=== PATIENT | male | born 1955 | race Caucasian/White ===

== ENCOUNTER 2018-10-19 19:16 | Observation (INO) | payer MEDICARE, OTHER ==
[~2018-10-19] VITALS: Ht 182.9 cm; Wt 81.4 kg
[~2018-10-19 19:16] MED LIST: ACCOLATE20 MG PO; ADVAIR 500/501 EA INH; AMITRIPTYLINE H25 MG PO; CYMBALTA60 MG PO; DEXILANT60 MG PO; NEURONTIN100 MG PO; PROVENTIL HFA6.7 GM; TYLENOL WITH C1 EACH PO; VENTOLIN HFA18 GM; VIAGRA50 MG PO
--- OUTSIDE RECORDS SUMMARY | 2018-10-19 19:19 | XMS REPORT | Clinical Summary ---
Author Author [facility] Organization [facility] Address Unknown Phone Unavailable Care Team Providers Care Animal Care Provider Name Role Phone Bertram Richards MD PCP Allergies No Known Allergies Medications End Date Status Medication Sig Dispensed Refills Start Date Active multivitamin tablet Take 1 tablet 0 by mouth daily. Active gabapentin (NEURONTIN) Take 1 90 capsule 1 300 mg capsule by 4 capsuleIndications: Back mouth 3 times pain daily. Active Nebulizer & Compressor by 1 Device 0 For Neb DeviIndications: Misc.(Non-Steven 4 Reactive airway disease g; Combo Route) route. Active hypromellose (GONAK) 2.5 Instill 1 15 mL 3 % ophthalmic Drop in each 5 solutionIndications: Dry eye 3 times eye daily. Active traMADol (ULTRAM) 50 mg Take 1 tablet 60 tablet 1 tabletIndications: Back by mouth 5 pain every 12 hours as needed for Pain. Active Arm Brace (NEOPRENE WRIST use as 1 Each 1 SPLINT SUPPORT) directed 5 MiscIndications: Abnormal NONF MRI Active zafirlukast (ACCOLATE) 20 Take 1 tablet 180 tablet 5 mg tabletIndications: by mouth 2 5 Asthmatic bronchitis, times daily. severe persistent, uncomplicated, Uncomplicated severe persistent asthma Active celecoxib (CELEBREX) 200 Take 1 60 capsule 4 mg capsuleIndications: capsule by 6 Arthralgia, unspecified mouth 2 times joint daily. Active Nebulizer & Compressor 1 Device by 1 Device 0 For Neb DeviIndications: Misc.(Non-Steven 6 Asthmatic bronchitis, g; Combo severe persistent, with Route) route acute exacerbation 4 times daily. Active blood pressure monitor 1 Device by 1 Kit 0 (BLOOD PRESSURE KIT) [facility]Non-Steven 6 KitIndications: Essential g; Combo hypertension Route) route daily. Active acetaminophen-codeine Take 2 60 tablet 1 (TYLENOL/CODEINE #3) tablets by 6 300-30 mg per mouth every 4 tabletIndications: hours as Chronic left-sided low needed for back pain with sciatica, Pain. sciatica laterality unspecified Active ipratropium (ATROVENT) Inhale 2.5 mL 250 mL 3 0.02 % nebulizer by mouth 4 7 solutionIndications: times daily. Uncomplicated severe persistent asthma, Chronic obstructive pulmonary disease with acute exacerbation Active albuterol (PROVENTIL) 2.5 Inhale 3 mL 300 mL 3 mg /3 mL (0.083 %) by mouth 7 nebulizer every 6 hours solutionIndications: as needed for Chronic obstructive Wheezing. pulmonary disease with acute exacerbation Active acetaminophen-codeine Take 1 tablet 90 tablet 2 (TYLENOL/CODEINE #3) by mouth 2 7 300-30 mg per times daily. tabletIndications: Acute bilateral low back pain with right-sided sciatica Active azelastine (OPTIVAR) 0.05 Instill 1 6 mL 3 % ophthalmic Drop in each 7 solutionIndications: Dry eye 2 times eye daily. Active albuterol (PROVENTIL) 2.5 Inhale 3 mL 300 mL 3 mg /3 mL (0.083 %) by mouth 7 nebulizer every 4 hours solutionIndications: as needed for Chronic obstructive Wheezing or pulmonary disease with Shortness of acute exacerbation Breath. Active albuterol (PROVENTIL) 2.5 USE ONE VIAL 300 mL 3 mg /3 mL (0.083 %) VIA 8 nebulizer NEBULIZATION solutionIndications: BY MOUTH Chronic obstructive EVERY 6 HOURS pulmonary disease with NEEDED FOR acute exacerbation WHEEZING. Active albuterol (PROVENTIL) 2.5 USE ONE VIAL 300 mL 3 02/21/201 mg /3 mL (0.083 %) (3ML) VIA 8 nebulizer NEBULIZATION solutionIndications: BY MOUTH Chronic obstructive EVERY 6 HOURS pulmonary disease with NEEDED FOR acute exacerbation WHEEZING Active ipratropium (ATROVENT) INHALE ONE 250 mL 3 0.02 % nebulizer VIAL VIA 8 solutionIndications: NEBULIZER BY Chronic obstructive MOUTH FOUR pulmonary disease with TIMES A DAY acute exacerbation Active nystatin (MYCOSTATIN) APPLY TO 60 g 2 topical creamIndications: AFFECTED 8 Tinea AREA(S) THREE TIMES A DAY Active hydrOXYzine (ATARAX) 25 TAKE ONE 180 tablet 2 mg tabletIndications: TABLET BY 8 Rash MOUTH TWICE A DAY OR THREE TIMES A DAY. Active tiZANidine (ZANAFLEX) 4 TAKE ONE 180 tablet 2 mg tabletIndications: TABLET BY 8 Spasm of muscle MOUTH TWICE A DAY NEEDED FOR MUSCLE SPASMS. Active budesonide-formoterol Inhale 2 10.2 g 3 (SYMBICORT HFA) 160-4.5 Puffs by 8 mcg/actuation mouth 2 times inhalerIndications: daily. Chronic obstructive pulmonary disease with acute exacerbation Active fluticasone-vilanterol 60 Each 1 (BREO ELLIPTA) 200-25 8 mcg/dose DsDvIndications: Chronic obstructive pulmonary disease with acute exacerbation Active mometasone (NASONEX) 50 SPRAY TWO 17 g 3 mcg/actuation nasal SPRAYS IN 8 sprayIndications: Chronic EACH NOSTRIL rhinitis ONCE DAILY. Active Omeprazole 40 mg Take 1 90 capsule 2 capsuleIndications: capsule by 8 Gastroesophageal reflux mouth daily. disease with esophagitis Active tamsulosin (FLOMAX) 0.4 Take 1 30 capsule 2 mg extended release capsule by 8 capsuleIndications: mouth daily. Benign nodular prostatic hyperplasia without lower urinary tract symptoms Active calcipotriene (DOVONEX) APPLY TO 60 g 2 0.005 % topical AFFECTED 8 creamIndications: Rash AREA(S) TWO TIMES A DAY. Active hydroCHLOROthiazide 12.5 TAKE ONE 90 capsule 1 mg capsuleIndications: CAPSULE BY 8 Essential hypertension MOUTH EVERY MORNING. Active alendronate (FOSAMAX) 70 TAKE ONE 12 tablet 1 mg tabletIndications: TABLET BY 8 Senile osteoporosis MOUTH ONCE WEEKLY ON AN EMPTY STOMACH WITH 8 OUNCES OF WATER AND REMAIN UPRIGHT FOR 30 MINUTES.. Active sildenafil citrate Take 1 tablet 30 tablet 1 (VIAGRA) 25 mg by mouth as 8 tabletIndications: Other needed for male erectile dysfunction Erectile Dysfunction. 04/03/2019 Active albuterol 90 INHALE TWO 3 Month 3 mcg/actuation PUFFS BY Supply 8 inhalerIndications: MOUTH EVERY 4 Chronic obstructive HOURS pulmonary disease with NEEDED FOR acute exacerbation WHEEZING OR FOR SHORTNESS OF BREATH. Active amLODIPine (NORVASC) 5 mg Take 1 tablet 90 tablet 2 tabletIndications: by mouth 9 Essential hypertension daily. Active eselharmpmn-wojtcbott-wpp Inhale 1 Puff 1 Inhaler 5 anter (TRELEGY ELLIPTA) by mouth 9 100-62.5-25 mcg daily. DsDvIndications: Chronic obstructive pulmonary disease with acute exacerbation Active hydroCHLOROthiazide 12.5 TAKE ONE 30 capsule 4 mg capsuleIndications: CAPSULE BY 9 Essential hypertension MOUTH EVERY MORNING Active tamsulosin (FLOMAX) 0.4 TAKE ONE 30 capsule 0 mg extended release CAPSULE BY 9 capsuleIndications: MOUTH DAILY Benign nodular prostatic hyperplasia without lower urinary tract symptoms Active NASONEX 50 mcg/actuation SPRAY TWO 16 g 2 nasal sprayIndications: SPRAYS IN 9 Chronic rhinitis EACH NOSTRIL ONCE DAILY 11/23/2017 Discontinued ketoconazole (NIZORAL) 2 Apply to 30 g 1 % topical affected area 5 creamIndications: Tinea 2 times pedis daily. 11/23/2017 Discontinued dexlansoprazole Take 1 90 capsule 0 (DEXILANT) 60 mg delayed capsule by 6 release mouth daily. capsuleIndications: Auto sub for Gastroesophageal reflux omeprazole disease without esophagitis 11/23/2017 Discontinued fluticasone-salmeterol Inhale 1 Puff 3 Month 3 (ADVAIR DISKUS) 500-50 by mouth 2 Supply 6 mcg/dose diskus times daily. inhalerIndications: Chronic obstructive pulmonary disease with acute exacerbation 11/23/2017 Discontinued hydrOXYzine (ATARAX) 25 Take 1 tablet 90 tablet 2 mg tabletIndications: po bid or 6 Major depressive tid. disorder, single episode, unspecified 11/23/2017 Discontinued nystatin (MYCOSTATIN) Apply to 60 g 3 topical creamIndications: affected area 7 Tinea 3 times daily. 11/23/2017 Discontinued hydrOXYzine (ATARAX) 25 TAKE ONE 270 tablet 1 mg tabletIndications: TABLET BY 7 Chronic obstructive MOUTH TWICE A pulmonary disease with DAY TO THREE acute exacerbation TIMES A DAY. 04/08/2018 Discontinued sildenafil citrate Take 1 tablet 10 tablet 3 (VIAGRA) 100 mg by mouth as 7 tabletIndications: needed for Erectile dysfunction due Erectile to arterial insufficiency Dysfunction. 11/23/2017 Discontinued amLODIPine (NORVASC) 10 Take 1 tablet 90 tablet 3 mg tabletIndications: by mouth 7 Essential hypertension daily. 11/23/2017 Discontinued amLODIPine (NORVASC) 10 Take 1 tablet 90 tablet 0 mg tabletIndications: by mouth 7 Essential hypertension daily. 11/23/2017 Discontinued tiZANidine (ZANAFLEX) 4 TAKE ONE 180 tablet 0 mg tabletIndications: TABLET BY 7 Spasm of muscle MOUTH TWICE A DAY NEEDED FOR MUSCLE SPASMS. 11/23/2017 Discontinued Omeprazole 40 mg Take 1 90 capsule 3 capsuleIndications: capsule by 7 Gastroesophageal reflux mouth daily. disease with esophagitis 04/08/2018 Discontinued sildenafil citrate Take 1 tablet 20 tablet 5 (VIAGRA) 100 mg by mouth as 7 tabletIndications: needed for Erectile dysfunction due Erectile to arterial insufficiency Dysfunction. 04/08/2018 Discontinued mometasone (NASONEX) 50 2 Sprays by 51 g 4 mcg/actuation nasal each nostril 7 sprayIndications: Chronic route daily. seasonal allergic rhinitis due to pollen 11/23/2017 Discontinued fluticasone-vilanterol Take 1 Puff 180 Each 2 (BREO ELLIPTA) 200-25 by mouth 7 mcg/dose DsDvIndications: daily. Chronic obstructive pulmonary disease with acute exacerbation 04/08/2018 Discontinued albuterol (PROAIR HFA) 90 INHALE TWO 3 Month 3 mcg/actuation PUFFS BY Supply 7 inhalerIndications: MOUTH EVERY 4 Chronic obstructive HOURS pulmonary disease with NEEDED FOR acute exacerbation WHEEZING OR FOR SHORTNESS OF BREATH. 11/23/2017 Discontinued budesonide-formoterol Inhale 2 10.2 g 3 (SYMBICORT HFA) 160-4.5 Puffs by 7 mcg/actuation mouth 2 times inhalerIndications: daily. Moderate persistent asthma with status asthmaticus 11/23/2017 Discontinued alendronate (FOSAMAX) 70 TAKE ONE 4 tablet 2 mg tabletIndications: TABLET BY 7 Senile osteoporosis MOUTH ONCE WEEKLY ON AN EMPTY STOMACH WITH 8 OUNCES OF WATER AND REMAIN UPRIGHT FOR 30 MINUTES. 04/08/2018 Discontinued promethazine (PHENERGAN) Take 1 tablet 60 tablet 3 25 mg tabletIndications: by mouth 7 Nausea every 8 hours as needed for Nausea or Vomiting. 11/23/2017 Discontinued BREO ELLIPTA 200-25 INHALE ONE 60 Each 1 mcg/dose DsDvIndications: DOSE BY MOUTH 8 Chronic obstructive DAILY pulmonary disease with acute exacerbation 11/23/2017 Discontinued calcipotriene (DOVONEX) Apply to 60 g 4 0.005 % topical affected area 8 creamIndications: Rash 2 times daily. 04/08/2018 Discontinued sildenafil citrate Take 1 tablet 30 tablet 4 (VIAGRA) 100 mg by mouth as 8 tabletIndications: needed for Erectile dysfunction due Erectile to arterial insufficiency Dysfunction. 11/23/2017 Discontinued omeprazole (PRILOSEC) 20 TAKE ONE 60 capsule 2 mg delayed release CAPSULE BY 8 capsuleIndications: MOUTH TWICE A Gastroesophageal reflux DAY disease with esophagitis 02/26/2018 Discontinued ipratropium (ATROVENT) Inhale 2.5 mL 300 mL 3 0.02 % nebulizer by mouth 4 8 solutionIndications: times daily. Chronic obstructive pulmonary disease with acute exacerbation 04/08/2018 Discontinued promethazine (PHENERGAN) TAKE ONE 60 tablet 0 25 mg tabletIndications: TABLET BY 8 Nausea MOUTH EVERY 8 HOURS NEEDED FOR NAUSEA AND VOMITING 11/15/2017 Discontinued tamsulosin (FLOMAX) 0.4 TAKE ONE 30 capsule 2 mg extended release CAPSULE BY 8 capsuleIndications: MOUTH DAILY Benign nodular prostatic hyperplasia without lower urinary tract symptoms 11/23/2017 Discontinued NASONEX 50 mcg/actuation SPRAY TWO 16 g 3 nasal sprayIndications: SPRAYS IN 8 Chronic rhinitis EACH NOSTRIL ONCE DAILY 11/23/2017 Discontinued albuterol (PROVENTIL) 2.5 USE ONE VIAL 300 mL 3 mg /3 mL (0.083 %) VIA 8 nebulizer NEBULIZATION solutionIndications: BY MOUTH Chronic obstructive EVERY 6 HOURS pulmonary disease with NEEDED FOR acute exacerbation WHEEZING 11/23/2017 Discontinued hydrOXYzine (ATARAX) 25 TAKE ONE 90 tablet 0 mg tabletIndications: TABLET BY 8 Itch MOUTH TWICE A DAY OR THREE TIMES A DAY 10/27/2017 Discontinued hydroCHLOROthiazide 12.5 TAKE ONE 30 capsule 0 mg capsuleIndications: CAPSULE BY 8 Essential hypertension MOUTH EVERY MORNING 11/23/2017 Discontinued tiZANidine (ZANAFLEX) 4 TAKE ONE 60 tablet 3 mg tabletIndications: TABLET BY 8 Spasm of muscle MOUTH TWICE A DAY NEEDED FOR MUSCLE SPASMS. 04/08/2018 Discontinued codeine-guaiFENesin TAKE 5ML BY 120 mL 0 (CHERATUSSIN AC) 10-100 MOUTH THREE 8 mg/5 mL syrupIndications: TIMES A DAY Cough NEEDED COUGH. 11/23/2017 Discontinued hydroCHLOROthiazide 12.5 TAKE ONE 30 capsule 0 mg capsuleIndications: CAPSULE BY 8 Essential hypertension MOUTH EVERY MORNING 11/23/2017 Discontinued hydroCHLOROthiazide 12.5 TAKE ONE 30 capsule 5 mg capsuleIndications: CAPSULE BY 8 Essential hypertension MOUTH EVERY MORNING. 11/23/2017 Discontinued tamsulosin (FLOMAX) 0.4 TAKE ONE 30 capsule 1 mg extended release CAPSULE BY 8 capsuleIndications: MOUTH DAILY Benign nodular prostatic hyperplasia without lower urinary tract symptoms 05/20/2018 Discontinued HYDROcodone-ibuprofen Take 1 tablet 0 7.5-200 mg per tablet by mouth 8 every 4 hours as needed. 04/08/2018 Discontinued tamsulosin (FLOMAX) 0.4 Take 1 90 capsule 1 mg extended release capsule by 8 capsuleIndications: mouth daily. Benign nodular prostatic hyperplasia without lower urinary tract symptoms 04/08/2018 Discontinued hydroCHLOROthiazide 12.5 TAKE ONE 90 capsule 1 mg capsuleIndications: CAPSULE BY 8 Essential hypertension MOUTH EVERY MORNING. 12/07/2017 Discontinued tiZANidine (ZANAFLEX) 4 TAKE ONE 180 tablet 1 mg tabletIndications: TABLET BY 8 Spasm of muscle MOUTH TWICE A DAY NEEDED FOR MUSCLE SPASMS. 12/07/2017 Discontinued hydrOXYzine (ATARAX) 25 TAKE ONE 180 tablet 1 mg tabletIndications: TABLET BY 8 Itch MOUTH TWICE A DAY OR THREE TIMES A DAY. 04/08/2018 Discontinued mometasone (NASONEX) 50 SPRAY TWO 16 g 3 mcg/actuation nasal SPRAYS IN 8 sprayIndications: Chronic EACH NOSTRIL rhinitis ONCE DAILY. 04/08/2018 Discontinued omeprazole (PRILOSEC) 20 Take 1 60 capsule 2 mg delayed release capsule by 8 capsuleIndications: mouth 2 times Gastroesophageal reflux daily. disease with esophagitis 03/09/2018 Discontinued calcipotriene (DOVONEX) Apply to 180 g 1 0.005 % topical affected area 8 creamIndications: Rash 2 times daily. 04/08/2018 Discontinued fluticasone-vilanterol 60 Each 1 (BREO ELLIPTA) 200-25 8 mcg/dose DsDvIndications: Chronic obstructive pulmonary disease with acute exacerbation 04/08/2018 Discontinued alendronate (FOSAMAX) 70 TAKE ONE 12 tablet 1 mg tabletIndications: TABLET BY 8 Senile osteoporosis MOUTH ONCE WEEKLY ON AN EMPTY STOMACH WITH 8 OUNCES OF WATER AND REMAIN UPRIGHT FOR 30 MINUTES.. 04/08/2018 Discontinued budesonide-formoterol Inhale 2 10.2 g 3 (SYMBICORT HFA) 160-4.5 Puffs by 8 mcg/actuation mouth 2 times inhalerIndications: daily. Moderate persistent asthma with status asthmaticus 04/08/2018 Discontinued amLODIPine (NORVASC) 10 Take 1 tablet 90 tablet 1 mg tabletIndications: by mouth 8 Essential hypertension daily. 03/09/2018 Discontinued nystatin (MYCOSTATIN) Apply to 60 g 3 topical creamIndications: affected area 8 Tinea 3 times daily. 04/08/2018 Discontinued dexlansoprazole Take 1 90 capsule 1 (DEXILANT) 60 mg delayed capsule by 8 release mouth daily. capsuleIndications: Auto sub for Gastroesophageal reflux omeprazole disease without esophagitis 03/06/2018 Discontinued Omeprazole 40 mg TAKE ONE 30 capsule 2 capsuleIndications: CAPSULE BY 8 Gastroesophageal reflux MOUTH DAILY disease with esophagitis 02/20/2018 Discontinued albuterol (PROVENTIL) 2.5 USE ONE VIAL 300 mL 2 mg /3 mL (0.083 %) VIA 8 nebulizer NEBULIZATION solutionIndications: BY MOUTH Chronic obstructive EVERY 6 HOURS pulmonary disease with NEEDED FOR acute exacerbation WHEEZING 04/08/2018 Discontinued hydrOXYzine (ATARAX) 25 TAKE ONE 180 tablet 2 mg tabletIndications: TABLET BY 8 Itch, Psychophysiological MOUTH TWICE A insomnia DAY OR THREE TIMES A DAY. 04/08/2018 Discontinued tiZANidine (ZANAFLEX) 4 TAKE ONE 180 tablet 2 mg tabletIndications: TABLET BY 8 Spasm of muscle MOUTH TWICE A DAY NEEDED FOR MUSCLE SPASMS. 03/23/2018 Discontinued NASONEX 50 mcg/actuation SPRAY TWO 16 g 2 nasal sprayIndications: SPRAYS IN 8 Chronic rhinitis EACH NOSTRIL ONCE DAILY 02/15/2018 Discontinued tamsulosin (FLOMAX) 0.4 TAKE ONE 30 capsule 0 mg extended release CAPSULE BY 8 capsuleIndications: MOUTH DAILY Benign nodular prostatic hyperplasia without lower urinary tract symptoms 03/15/2018 Discontinued tamsulosin (FLOMAX) 0.4 TAKE ONE 30 capsule 0 mg extended release CAPSULE BY 8 capsuleIndications: MOUTH DAILY Benign nodular prostatic hyperplasia without lower urinary tract symptoms 03/09/2018 Discontinued Omeprazole 40 mg TAKE ONE 30 capsule 1 capsuleIndications: CAPSULE BY 8 Gastroesophageal reflux MOUTH DAILY disease with esophagitis 03/15/2018 Discontinued Omeprazole 40 mg Take 1 90 capsule 2 capsuleIndications: capsule by 8 Gastroesophageal reflux mouth daily. disease with esophagitis 04/08/2018 Discontinued calcipotriene (DOVONEX) APPLY TO 60 g 2 0.005 % topical AFFECTED 8 creamIndications: Rash AREA(S) TWO TIMES A DAY 04/08/2018 Discontinued Omeprazole 40 mg Take 1 90 capsule 2 capsuleIndications: capsule by 8 Gastroesophageal reflux mouth daily. disease with esophagitis 04/08/2018 Discontinued tamsulosin (FLOMAX) 0.4 TAKE ONE 30 capsule 0 mg extended release CAPSULE BY 8 capsuleIndications: MOUTH DAILY Benign nodular prostatic hyperplasia without lower urinary tract symptoms 04/08/2018 Discontinued NASONEX 50 mcg/actuation SPRAY TWO 17 g 3 nasal sprayIndications: SPRAYS IN 8 Chronic rhinitis EACH NOSTRIL ONCE DAILY 05/20/2018 Discontinued amLODIPine (NORVASC) 10 Take 1 tablet 90 tablet 1 mg tabletIndications: by mouth 8 Essential hypertension daily. 05/20/2018 Discontinued tamsulosin (FLOMAX) 0.4 TAKE ONE 30 capsule 0 mg extended release CAPSULE BY 8 capsuleIndications: MOUTH DAILY Benign nodular prostatic hyperplasia without lower urinary tract symptoms 06/23/2018 Discontinued tamsulosin (FLOMAX) 0.4 TAKE ONE 30 capsule 0 05/23/201 mg extended release CAPSULE BY 9 capsuleIndications: MOUTH DAILY Benign nodular prostatic hyperplasia without lower urinary tract symptoms 07/20/2018 Discontinued tamsulosin (FLOMAX) 0.4 TAKE ONE 30 capsule 0 06/23/201 mg extended release CAPSULE BY 9 capsuleIndications: MOUTH DAILY Benign nodular prostatic hyperplasia without lower urinary tract symptoms Active Problems Problem Noted Date Varicose veins 04/24/2015 Carpal tunnel syndrome, bilateral 04/24/2015 Elevated PSA 02/08/2015 Benign prostatic hyperplasia 09/19/2014 NS (nuclear sclerosis) 09/07/2014 Hyperopia with astigmatism and presbyopia 09/07/2014 History of shingles 04/25/2014 Dry eye 04/25/2014 Low back pain 07/12/2013 Edentulous 04/25/2013 Encounters Care Team Description Date Type Specialty Bertram Richards MD Chronic rhinitis 10/07/2018 Refill Family Practice Luana Ferrara LMSW Pre-clinic Chart Review; [employer] (DME repairs) 09/30/2018 Telephone Social Work Rosario Siegel RN 09/09/2018 Nurse Triage Bertram Richards MD Benign nodular prostatic hyperplasia without lower urinary tract symptoms 07/20/2018 Refill Family Practice Bertram Richards MD Benign nodular prostatic hyperplasia without lower urinary tract symptoms 06/23/2018 Refill Family Practice Bertram Richards MD Essential hypertension 05/28/2018 Refill [facility] Bertram Richards MD Benign nodular prostatic hyperplasia without lower urinary tract symptoms 05/21/2018 Refill [facility] Bertram Richards MD Elevated liver enzymes (Primary Dx); Essential hypertension; Chronic obstructive pulmonary disease with acute exacerbation 05/20/2018 Office Visit [facility] 05/20/2018 Travel Bertram Richards MD Benign nodular prostatic hyperplasia without lower urinary tract symptoms 04/16/2018 Refill [facility] [employer] Medical Equipment (Inquire about title XIX received requesting power wheelchair repair.); Pre-clinic Chart Review 04/14/2018 Telephone Social Work Boris Diaz MD Essential hypertension (Primary Dx); Chronic obstructive pulmonary disease with acute exacerbation; Chronic rhinitis; Rash; Benign nodular prostatic hyperplasia without lower urinary tract symptoms; Gastroesophageal reflux disease with esophagitis; Spasm of muscle; Senile osteoporosis; Other male erectile dysfunction; Need for influenza vaccination; Screening for condition 04/08/2018 Office Visit [facility] 04/08/2018 Travel Bertram Richards MD Chronic rhinitis 03/23/2018 Refill [facility] Bertram Richards MD Benign nodular prostatic hyperplasia without lower urinary tract symptoms 03/15/2018 Refill [facility] Marjorie Copeland RN Gastroesophageal reflux disease with esophagitis 03/15/2018 Refill [facility] Bertram Richards MD Tinea; Rash 03/09/2018 Refill [facility] Bertram Richards MD Gastroesophageal reflux disease with esophagitis 03/09/2018 Orders Only Family Practice Bertram Richards MD Gastroesophageal reflux disease with esophagitis 03/06/2018 Refill [facility] Bertram Richards MD Chronic obstructive pulmonary disease with acute exacerbation 02/26/2018 Refill Pulmonology Bertram Richards MD Chronic obstructive pulmonary disease with acute exacerbation 02/20/2018 Refill Pulmonology Bertram Richards MD Benign nodular prostatic hyperplasia without lower urinary tract symptoms 02/15/2018 Refill [facility] Bertram Richards MD Benign nodular prostatic hyperplasia without lower urinary tract symptoms 01/13/2018 Refill [facility] Bertram Richards MD Chronic rhinitis 12/15/2017 Refill Family Practice Bertram Richards MD Hepatomegaly (Primary Dx); Splenomegaly; Itch; Spasm of muscle; Psychophysiological insomnia 12/07/2017 Office Visit Family Practice Bertram Richards MD Chronic obstructive pulmonary disease with acute exacerbation 12/03/2017 Refill Pulmonology Bertram Richards MD Gastroesophageal reflux disease with esophagitis (Primary Dx) 11/30/2017 Refill Family Practice Daya Freedman NP Need for Tdap vaccination (Primary Dx); Benign nodular prostatic hyperplasia without lower urinary tract symptoms; Essential hypertension; Spasm of muscle; Itch; Chronic obstructive pulmonary disease with acute exacerbation; Chronic rhinitis; Gastroesophageal reflux disease with esophagitis; Rash; Senile osteoporosis; Moderate persistent asthma with status asthmaticus; Tinea; Gastroesophageal reflux disease without esophagitis; Lower abdominal pain; Screen for STD (sexually transmitted disease); Colon cancer screening; Preventative health care 11/23/2017 Office Visit Family Practice Katherine Cole, [place] Information Only 11/17/2017 Telephone Psychiatry Bertram Richards MD Benign nodular prostatic hyperplasia without lower urinary tract symptoms 11/15/2017 Refill Family Practice Marjorie Copeland, [place] Essential hypertension 10/27/2017 Refill Family Practice after 10/18/2017 Immunizations Name Administration Dates Next Due GENTAMICIN 40 MG/ML 04/23/2015 INJECTION Herpes Zoster Vaccine In 04/25/2014 Clinic Influenza <Unspecified> 01/17/2017 Influenza Vaccine 01/26/2014 Influenza Vaccine, 04/27/2017 (Deferred: Patient already had this Seasonal, Injectable immunization - pt states he received influenza vaccine in 2016 at [facility]) Influenza, 04/08/2018 (Deferred: Patient Refused) Vaccine<FLUCELVAX>(Multi- Dose) KETOROLAC 60 MG/2 ML IM 07/08/2015 PPV 23 Pneumococcal 03/22/2014 Polysaccaride Triamcinolone 40mg/ml Inj 07/08/2015 Twinrix-HEP A&b 09/19/2015 Family History Medical History Relation Name Comments Stroke Father Cancer Mother Cancer Sister Relation Name Status Comments Father Mother Sister Social History Date Tobacco Use Types Packs/Day Years Used Never Smoker Smokeless Tobacco: Never Used Tobacco Cessation: Counseling Given: No Drinks/Week oz/Week Comments Alcohol Use 0 Standard drinks or equivalent 0.0 Yes Food Insecurity Answer Date Recorded Within the past 12 months, you worried that your Never true 05/20/2018 food would run out before you got money to buy more. Within the past 12 months, the food you bought Never true 05/20/2018 just didn't last and you didn't have money to get more. Sex Assigned at Date Recorded Not on file Industry Job Start Date Occupation Not on file Not on file Not on file Travel End Travel History Travel Start No recent travel history available. 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 Reduce pain Lifestyle Yes Sarah Maria Procedures Comments Procedure Name Priority Date/Time Associated Diagnosis GAMMA GLUTAMYL Routine 06/02/2018 Elevated liver enzymes TRANSFERASE (GGT) 10:24 AM JAVA MANAGER HEMOGLOBIN A1C Routine 06/02/2018 Elevated liver enzymes 10:24 AM JAVA MANAGER GLUCOSE, FASTING Routine 06/02/2018 Elevated liver enzymes 10:24 AM JAVA MANAGER ELECTROLYTES Routine 06/02/2018 Elevated liver enzymes 10:24 AM JAVA MANAGER UREA NITROGEN/CREATININE Routine 06/02/2018 Elevated liver enzymes 10:24 AM JAVA MANAGER URINALYSIS Routine 06/02/2018 Elevated liver enzymes 10:24 AM JAVA MANAGER LIVER PROFILE Routine 06/02/2018 Elevated liver enzymes 10:24 AM JAVA MANAGER LIPID PROFILE Routine 06/02/2018 Elevated liver enzymes 10:24 AM JAVA MANAGER CBC (WITHOUT Routine 06/02/2018 Elevated liver enzymes DIFFERENTIAL) 10:24 AM JAVA MANAGER HEPATITIS PANEL Routine 04/08/2018 Screening for condition 11:23 AM JAVA MANAGER HIV-1/HIV-2 ROUTINE Routine 04/08/2018 Screening for condition SCREENING 11:23 AM JAVA MANAGER VIT D, 25-HYDROXY Routine 04/08/2018 Spasm of muscle 11:23 AM JAVA MANAGER CBC (WITHOUT Routine 04/08/2018 Screening for condition DIFFERENTIAL) 11:23 AM JAVA MANAGER FREE T4 Routine 04/08/2018 Screening for condition 11:23 AM JAVA MANAGER BASIC METABOLIC PANEL Routine 04/08/2018 Essential hypertension 11:23 AM JAVA MANAGER LIVER PROFILE Routine 04/08/2018 Essential hypertension 11:23 AM JAVA MANAGER LIPID PROFILE Routine 04/08/2018 Screening for condition 11:23 AM JAVA MANAGER HEMOGLOBIN A1C Routine 04/08/2018 Screening for condition 11:23 AM JAVA MANAGER THYROID STIMULATING Routine 04/08/2018 Screening for condition HORMONE (TSH) 11:23 AM JAVA MANAGER FECAL OCCULT BLOOD Routine 12/07/2017 Colon cancer screening 3:50 PM CDT VIT D, 25-HYDROXY Routine 11/23/2017 Preventative health care 12:06 PM CDT HEMOGLOBIN A1C Routine 11/23/2017 Preventative health care 12:06 PM CDT FREE T4 Routine 11/23/2017 Preventative health care 12:06 PM CDT THYROID STIMULATING Routine 11/23/2017 Preventative health care HORMONE (TSH) 12:06 PM CDT LIPID PROFILE Routine 11/23/2017 Preventative health care 12:06 PM CDT CBC/DIFF Routine 11/23/2017 Preventative health care 12:06 PM CDT LIVER PROFILE Routine 11/23/2017 Preventative health care 12:06 PM CDT BASIC METABOLIC PANEL Routine 11/23/2017 Preventative health care 12:06 PM CDT HSV 1 AND 2-SPECIFIC AB, Routine 11/23/2017 Screen for STD (sexually IGG W/ REFLEX 11:39 AM CDT transmitted disease) CHLAM/GC DNA AMPLI Routine 11/23/2017 Screen for STD (sexually 11:39 AM CDT transmitted disease) SYPHILIS SCREEN FOR Routine 11/23/2017 Screen for STD (sexually INFECTION 11:38 AM CDT transmitted disease) HEPATITIS PANEL Routine 11/23/2017 Screen for STD (sexually 11:38 AM CDT transmitted disease) HIV-1/HIV-2 ROUTINE Routine 11/23/2017 Screen for STD (sexually SCREENING 11:38 AM CDT transmitted disease) HEMOCCULT KIT FOR Routine 11/23/2017 Colon cancer screening SPECIMEN COLLECTION AT 11:35 AM CDT HOME after 10/18/2017 Results * HEMOGLOBIN A1C (06/02/2018 10:24 AM JAVA MANAGER) Only the most recent of 3 results within the time period is included. Hemoglobin A1c 5.6 4.3 - 6.1 % BT [facility] IMMUNOLOGY Est Average 114.0 mg/dL BT [facility] Gluc IMMUNOLOGY Specimen Blood Performing Organization Address City/State/Zipcode Phone Number [facility] IMMUNOLOGY * UA CHEMISTRIES (06/02/2018 10:24 AM JAVA MANAGER) Color Straw BT MAIN-STATION 3 Clarity Clear BT [facility] 3 Specific 1.004 1.001 - 1.035 BT MA[facility]ATION [place] 3 pH 6.0 5 - 8 BT [facility] 3 Protein Negative NEG BT [facility] 3 Glucose Negative NEG BT [facility] 3 Ketones Negative NEG BT [facility] 3 Bilirubin Negative NEG BT [facility] 3 Nitrate Negative NEG BT [facility] 3 Urobilinogen,Se <1.0 0.2 - 1.0 EU/dL BT MAIN[facility]STATION mi-Qn 3 Leukocyte Negative NEG BT [facility] 3 Occult Blood Negative NEG BT [facility] 3 Specimen Urine Performing Organization Address [facility] [place] [place] Phone Number [facility] BT [facility]IN[facility] 3 * ELECTROLYTES (06/02/2018 10:24 AM JAVA MANAGER) Sodium 132 (L) 136 - 145 mmol/L BT MA[facility]ST[facility] 1 Potassium 4.1 3.5 - 5.1 mmol/L BT [facility] 1 Chloride 95 (L) 98 - 107 mmol/L BT [facility] 1 CO2 25 21 - 31 mmol/L BT [facility] 1 Anion Gap 12 BT MAIN[facility]ATION 1 Specimen Blood Performing Organization Address [facility] [place], [place] Phone Number [facility] BT [facility]IN[facility] 1 * LIVER PROFILE (06/02/2018 10:24 AM JAVA MANAGER) Only the most recent of 3 results within the time period is included. Protein, Total, 7.1 6.0 - 8.3 g/dL BT [facility] Serum 1 Albumin 4.5 4.2 - 5.5 g/dL BT [facility] 1 Bilirubin, 1.2 0.2 - 1.2 mg/dL BT [facility] Total 1 Alkaline 118 (H) 34 - 104 U/L BT [facility] Phosphatase, S 1 AST (SGOT) 78 (H) 13 - 39 U/L BT [facility] 1 ALT 67 (H) 7 - 52 U/L BT [facility] 1 D Bilirubin 0.3 (H) 0.0 - 0.2 mg/dL BT MA[facility] 1 Specimen Blood Performing Organization Address [facility] [place] [place] Phone Number [facility] BT [facility]IN[facility]ST[facility] 1 * LIPID PROFILE (06/02/2018 10:24 AM JAVA MANAGER) Only the most recent of 3 results within the time period is included. Cholesterol 162 mg/dL BT [facility] Comment: 1 REFERENCE RANGE: Desirable: <200 mg/dL Borderline: 200-240 mg/dL High Risk: >240 mg/dL Triglyceride 56 <150 mg/dL BT [facility]ATION Comment: 1 REFERENCE RANGE: Normal: <150 mg/dL Borderline High: 150-199 mg/dL High: 200-499 mg/dL Very High: >vg=811 mg/dL HDL 65 mg/dL BT [facility]ATION Comment: 1 Increased CHD risk: <40 mg/dL Decreased CHD risk: >60 mg/dL LDL 86 mg/dL BT MA[facility]STATION Comment: 1 REFERENCE RANGE: Optimal: <100 mg/dL Near Optimal: 100-129 mg/dL Borderline High: 130-159 mg/dL High: 160-189 mg/dL Very High: >mj=209 mg/dL Specimen Blood Performing Organization Address [facility] Phone Number [facility] BT [facility] 1 * GGT (06/02/2018 10:24 AM JAVA MANAGER) GGT 225 (H) 9 - 64 U/L BT MAIN[facility]STATION 1 Specimen Blood Performing Organization Address [facility] [place], [place] Phone Number [facility] BT MAIN[facility] 1 * GLUCOSE, FASTING (06/02/2018 10:24 AM JAVA MANAGER) Glucose, 95 74 - 106 mg/dL BT MAIN-STATION Fasting 1 Specimen Blood Performing Organization Address [facility] [place], [place] Phone Number [facility] BT MAIN[facility]STATION 1 * CBC (06/02/2018 10:24 AM JAVA MANAGER) Only the most recent of 2 results within the time period is included. WBC 5.8 4.5 - 12.0 K/uL BT MAIN-STATION 2 RBC 4.45 (L) 4.60 - 6.20 M/uL BT MAIN[facility]STATION 2 Hemoglobin 14.0 14.0 - 18.0 g/dL BT MAIN[facility]STATION 2 Hematocrit 41.2 40.0 - 54.0 % BT MA[facility] 2 MCV 93 (H) 82 - 92 fL BT MAIN[facility] 2 MCH 31.5 (H) 27.0 - 31.0 pg BT MAIN[facility] 2 MCHC 34.0 32.0 - 36.0 g/dL BT [facility] 2 RDW 41.3 35.1 - 43.9 fL BT MAIN[facility]ST[facility] 2 Platelets 238 150 - 400 K/uL BT MA[facility] 2 Mean Platelet 11.1 9.4 - 12.4 fL BT MAIN[facility]ATION Volume 2 Percent NRBC 0.0 BT MAIN[facility]STATION 2 Absolute NRBC 0.00 BT MAIN-STATION 2 Specimen Blood Performing Organization Address [facility] [place], [place] Phone Number [facility] BT MAIN[facility]STATION 2 * UREA NITROGEN/CREA (06/02/2018 10:24 AM JAVA MANAGER) BUN 7 7 - 25 mg/dL BT MAIN[facility] 1 Creatinine 0.70 0.7 - 1.3 mg/dL BT MAIN[facility] 1 GFR, Estimated >60 mL/min/1.73 m2 BT MAIN[facility]ST[facility] 1 eGFR If Africn >60 mL/min/1.73 m2 BT MAIN[facility]STATION Am 1 Specimen Other (Specify in Comments) Performing Organization Address City/[facility] [place], [place] Phone Number [facility] BT MAIN[facility]STATION 1 * VIT D, 25-HYDROXY (04/08/2018 11:23 AM JAVA MANAGER) Only the most recent of 2 results within the time period is included. Vit D, 42.9 30 - 100 ng/mL BT DIAG[facility]IC 25-Hydroxy Comment: IMMUNOLOGY Vitamin D deficiency has been defined by the [place] of Medicine and Endocrine Society guideline as a level of serum 25-OH Vitamin D less than 20 ng/mL. The Endocrine Society further defines Vitamin D insufficiency as a level between 21 and 29 ng/mL and sufficiency as a level between 30 and 100 ng/mL. Specimen Performing Organization Address City/[facility] [place], [place] Phone Number [facility] BT DIAGNOSTIC IMMUNOLOGY * HIV-1/HIV-2 ROUTINE SCREENING (04/08/2018 11:23 AM JAVA MANAGER) Only the most recent of 2 results within the time period is included. HIV-1/HIV-2 Negative NEG BT [facility]IN[facility] 3 Specimen Performing Organization Address [facility] [place], [place] Phone Number [facility] BT MAIN[facility] 3 * TSH (04/08/2018 11:23 AM JAVA MANAGER) Only the most recent of 2 results within the time period is included. TSH 0.57 0.57 - 3.74 uIU/mL BT MAIN[facility]STATION 1 Specimen Blood Performing Organization Address [facility] Phone Number [facility] 1 * FREE T4 (04/08/2018 11:23 AM JAVA MANAGER) Only the most recent of 2 results within the time period is included. Free T4 0.68 0.61 - 1.18 ng/dl BT MAIN[facility]STATION 1 Specimen Blood Performing Organization Address [facility] [place] [place] Phone Number [facility] BT [facility]IN[facility] 1 * HEPATITIS PANEL (04/08/2018 11:23 AM JAVA MANAGER) Only the most recent of 2 results within the time period is included. HCV IgG Negative NEG BT [facility]IN[facility] 3 HBsAg Negative NEG BT MAIN[facility] 3 HAV, IgM Negative NEG BT [facility]IN[facility] 3 HBcAb, IgM Negative NEG BT MAIN[facility] 3 Specimen Blood Performing Organization Address [facility] [place], [place] Phone Number [facility] BT MAIN-STATION 3 * BASIC METABOLIC PANEL (04/08/2018 11:23 AM JAVA MANAGER) Only the most recent of 2 results within the time period is included. CO2 24 21 - 31 mmol/L BT MAIN[facility]STATION 1 Chloride 99 98 - 107 mmol/L BT MAIN[facility] 1 Potassium 4.1 3.5 - 5.1 mmol/L BT MAIN[facility]ATION 1 Sodium 137 136 - 145 mmol/L BT [facility] 1 Glucose 85 70 - 110 mg/dL BT [facility] 1 BUN 10 7 - 25 mg/dL BT [facility] 1 Creatinine 0.90 0.7 - 1.3 mg/dL BT MAIN[facility] 1 Anion Gap 14 BT MAIN[facility]STATION 1 Calcium 9.4 8.6 - 10.3 mg/dL BT MAIN[facility] 1 GFR, Estimated >60 mL/min/1.73 m2 BT MAIN[facility]ST[facility] 1 eGFR If Africn >60 mL/min/1.73 m2 BT MAIN-STATION Am 1 Specimen Blood Performing Organization Address [facility] [place], [place] Phone Number [facility] 1 * OCCULT BLOOD ICT (12/07/2017 3:50 PM CDT) Occult Blood Negative NEG [facility] ICT LAB 2 Specimen Stool Performing Organization Address [facility] [place], [place] Phone Number [facility] LAB 2 * CBC/DIFF (11/23/2017 12:06 PM CDT) WBC 7.6 4.5 - 12.0 K/uL BT MAIN[facility]STATION 2 RBC 5.07 4.60 - 6.20 M/uL BT MAIN[facility]STATION 2 Hemoglobin 15.6 14.0 - 18.0 g/dL BT MAIN[facility] 2 Hematocrit 45.6 40.0 - 54.0 % BT MAIN[facility]STATION 2 MCV 90 82 - 92 fL BT MAIN[facility]STATION 2 MCH 30.8 27.0 - 31.0 pg BT MAIN[facility]STATION 2 MCHC 34.2 32.0 - 36.0 g/dL BT MAIN[facility]STATION 2 RDW 41.8 35.1 - 43.9 fL BT MAIN[facility]ST[facility] 2 Platelets 284 150 - 400 K/uL BT MAIN[facility]STATION 2 Mean Platelet 11.0 9.4 - 12.4 fL BT MAIN[facility]STATION Volume 2 Percent NRBC 0.0 BT MAIN[facility]STATION 2 Absolute NRBC 0.00 BT MAIN[facility]STATION 2 Neutrophils 69.1 (H) 34.0 - 67.9 % BT MAIN[facility] 2 Lymphs 16.8 (L) 21.8 - 50.0 % BT [facility]IN[facility]ST[facility] 2 Monocytes 11.9 5.3 - 12.0 % BT MAIN[facility]ST[facility] 2 Eos 1.4 0.8 - 5.0 % BT [facility]IN[facility]ST[facility] 2 Basos 0.5 0.2 - 1.2 % BT [facility]IN[facility]ST[facility] 2 Immature 0.3 0.0 - 0.5 BT MAIN-STATION Granulocytes 2 Neutrophils 5.27 1.78 - 5.36 K/uL BT MAIN[facility]STATION (Absolute) 2 Lymphs 1.28 (L) 1.32 - 3.57 K/uL BT MAIN[facility]STATION (Absolute) 2 Monocytes(Absol 0.91 (H) 0.30 - 0.82 K/uL BT [facility]IN-ST[facility]) 2 Eos (Absolute) 0.11 0.04 - 0.54 K/uL BT MAIN-STATION 2 Baso (Absolute) 0.04 0.01 - 0.08 K/uL BT MAIN[facility]STATION 2 Immature Grans 0.02 0.00 - 0.03 K/uL BT MAIN-STATION (Abs) 2 Specimen Blood Performing Organization Address City/State/Zipcode Phone Number [facility] BT [facility]IN[facility]ST[facility] 2 * HSV 1 AND 2-SPECIFIC AB, IGG W/ REFLEX (11/23/2017 11:39 AM CDT) HSV 1 IGG <0.91 LABORATORY Reference range: 0.00 to 0.90 CORPORATION OF Unit: index AFUA (note) Negative<0 .91 Equivocal 0.91 - 1.09 Positive>1 .09 Note: Negative indicates no antibodies detected to HSV-1. Equivocal may suggest early infection.If clinically appropriate, retest at later date. Positive indicates antibodies detected to HSV-1. HSV 2 IgG 6.24 LABORATORY Reference range: 0.00 to 0.90 CORPORATION OF Unit: index AFUA (note) Negative<0 .91 Equivocal 0.91 - 1.09 Positive>1 .09 Note: Negative indicates no antibodies detected to HSV-2. Equivocal may suggest early infection.If clinically appropriate, retest at later date. Positive indicates antibodies detected to HSV-2. Specimen Blood Products (Lab Use Only) - BLOOD Performing Organization Address City/State/Zipcode Phone Number [employer] [facility] OF [address] [place] [address] AFUA 145 * CHLAM/GC DNA AMPLI (11/23/2017 11:39 AM CDT) Chlamydia trach Negative NEG BT DIAGNOSTIC IMMUNOLOGY N gonorrhoeae Negative NEG BT DIAGNOSTIC Comment: IMMUNOLOGY This test utilizes [employer] AptBanksnob Combo 2 Assay for target amplification of rRNA for the qualitative detection of Chlamydia trachomatis and Neisseria gonorrhea. Spec Urine [facility] Description Specimen Other (Specify in Comments) - Voided, urine Performing Organization Address City/[facility] Phone Number [employer] BT DIAGNOSTIC IMMUNOLOGY [facility] * SYPHILIS SCREEN FOR INFECTION (11/23/2017 11:38 AM CDT) Treponemal Ab Negative BT DIAGNOSTIC IMMUNOLOGY Final Report Negative BT DIAGNOSTIC IMMUNOLOGY Specimen Performing Organization Address City/[facility] [place] [place] Phone Number [employer] BT DIAGNOSTIC IMMUNOLOGY after 10/18/2017 Insurance Type Payer Benefit Subscriber ID Effective Phone Address Plan / Dates Group [facility] xxxxxxxxx 2015-P [phone] [address] [employer] resent [id number] [place] [address] Liability
--- OUTSIDE RECORDS SUMMARY | 2018-10-19 19:20 | XMS REPORT ---
Author Author [facility] Address Unknown Phone Unavailable Care Team Providers Care Video Game Tester Name Role Phone Unavailable Unavailable Problems This patient has no known problems. Allergies, Adverse Reactions, Alerts This patient has no known allergies or adverse reactions. Medications This patient has no known medications. Encounters Start Date/Time End Date/Time Encounter Type Admission Type Attending [facility] Facility Care Department Encounter ID 2018-06-02 10:30:21 2018-06-02 10:30:21 Outpatient [facility] [id number] 2018-05-20 09:00:57 2018-05-20 09:00:57 Outpatient [facility] [id number] 2018-04-08 11:30:11 2018-04-08 11:30:11 Outpatient [facility] [id number] 2018-04-08 10:20:36 2018-04-08 10:20:36 Outpatient [facility] [id number] 2018-03-15 00:00:00 2018-03-15 00:00:00 Outpatient [facility] [id number] 2018-03-15 00:00:00 2018-03-15 00:00:00 Outpatient [facility] [id number] 2018-03-09 00:00:00 2018-03-09 00:00:00 Outpatient [facility] [id number] 2018-03-06 00:00:00 2018-03-06 00:00:00 Outpatient [facility] [id number] 2018-02-26 00:00:00 2018-02-26 00:00:00 Outpatient [facility] [id number] 2018-02-20 00:00:00 2018-02-20 00:00:00 Outpatient [facility] [id number] 2018-02-15 00:00:00 2018-02-15 00:00:00 Outpatient [facility] [id number] 2018-01-13 00:00:00 2018-01-13 00:00:00 Outpatient [facility] [id number] 2017-12-15 00:00:00 2017-12-15 00:00:00 Outpatient [facility] [id number] 2017-12-08 00:00:00 2017-12-08 00:00:00 Outpatient [facility] [id number] 2017-12-07 15:42:09 2017-12-07 15:42:09 Outpatient [facility] [id number] 2017-12-07 07:34:30 2017-12-07 07:34:30 Outpatient [facility] [id number] 2017-12-03 00:00:00 2017-12-03 00:00:00 Outpatient [facility] [id number] 2017-11-30 00:00:00 2017-11-30 00:00:00 Outpatient [facility] [id number] 2017-11-23 12:11:37 2017-11-23 12:11:37 Outpatient [facility] [id number] 2017-11-23 10:42:05 2017-11-23 10:42:05 Outpatient [facility] [id number] 2017-11-17 00:00:00 2017-11-17 00:00:00 Outpatient [facility] [id number] 2017-11-15 00:00:00 2017-11-15 00:00:00 Outpatient [facility] [id number] 2017-10-12 00:00:00 2017-10-12 00:00:00 Outpatient [facility] [id number] 2017-04-28 00:00:00 2017-04-28 00:00:00 Outpatient [facility] [id number] 2017-04-27 14:49:34 2017-04-27 14:49:34 Outpatient [facility] [id number] 2017-03-24 11:24:15 2017-03-24 11:24:15 Outpatient [facility] [id number] 2017-03-24 10:28:17 2017-03-24 10:28:17 Outpatient [facility] [id number] 2017-01-07 12:05:39 2017-01-07 12:05:39 Outpatient [facility] [id number] 2017-01-07 10:02:30 2017-01-07 10:02:30 Outpatient [facility] [id number] 2016-11-12 14:35:20 2016-11-12 14:35:20 Outpatient [facility] [id number]
[2018-10-19] MEDS ORDERED: DIATRIZOATE MEGL/DIATRIZOA SOD 30 ML BTL PO ONE (20:39)
[2018-10-19 20:41] LABS: BASOPHILS % 0.2 % (0.0-1.0); EOSINOPHILS % 0.1 % (0.0-6.0); HEMATOCRIT 40.6 % (38.2-49.6); HEMOGLOBIN 14.2 g/dL (14.0-18.0); LYMPHOCYTES # (AUTO) 0.6 (1.0-3.2); LYMPHOCYTES % 4.1 % (18.0-39.1); MEAN CORPUSCULAR HEMOGLOBIN 32.2 pg (28-32); MEAN CORPUSCULAR VOLUME 92.1 fL (81-99); MONOCYTES # (AUTO) 1.3 (0.2-0.8); MONOCYTES % 8.7 % (4.4-11.3); NEUTROPHILS # (AUTO) 13.2 (2.1-6.9); NEUTROPHILS % 86.6 % (38.7-80.0); PLATELET COUNT 254 x10e3/uL (140-360); RED BLOOD COUNT 4.41 x10e6/uL (4.3-5.7); RED CELL DISTRIBUTION WIDTH 12.3 % (11.7-14.4)
[2018-10-19 20:43] LABS: BILIRUBIN,URINE SMALL (NEGATIVE); CLARITY,URINE CLEAR (CLEAR); COLOR,URINE YELLOW (YELLOW); KETONES,URINE 1+ (NEGATIVE); LEUKOCYTE ESTERASE ,URINE NEGATIVE (NEGATIVE); NITRITE,URINE NEGATIVE (NEGATIVE); PROTEIN,URINE DIPSTICK NEGATIVE (NEGATIVE); URINE UROBILINOGEN 0.2 mg/dL (0.2 - 1)
[2018-10-19 20:45] LABS: INR 0.95; PROTHROMBIN TIME 13.2 seconds (11.9-14.5)
[2018-10-19 20:46] LABS: PARTIAL THROMBOPLASTIN TIME 27.5 seconds (23.8-35.5)
[2018-10-19] MEDS ORDERED: MORPHINE SULFATE 2 MG/ML SYR 1ML IV STA (20:47)
[2018-10-19] MEDS ORDERED: ONDANSETRON HCL INJ 2MG/ML 2ML 2 MG/ML VIAL IV STA (20:47)
[2018-10-19 20:48] LABS: RBC,URINE 0-5 /HPF (0-5)
[2018-10-19 20:49] LABS: AMORPHOUS SEDIMENT,URINE FEW (FEW); BACTERIA,URINE MANY /HPF; EPITHELIAL CELLS,URINE MANY /LPF; MUCUS,URINE MODERATE (RARE)
[2018-10-19 20:54] LABS: ALANINE AMINOTRANSFERASE 68 IU/L (0-55); ALBUMIN 4.4 g/dL (3.5-5.0); ALBUMIN/GLOBULIN RATIO 1.5 (0.8-2.0); ALKALINE PHOSPHATASE 112 IU/L (40-150); ANION GAP 17.4 mmol/L (8-16); BLOOD UREA NITROGEN 9 mg/dL (7-26); BUN/CREATININE RATIO 8 (6-25); CALCIUM 9.5 mg/dL (8.4-10.2); CARBON DIOXIDE 22 mmol/L (22-29); CHLORIDE 95 mmol/L (98-107); CREATININE, SERUM 1.12 mg/dL (0.72-1.25); EST GLOMERULAR FILTRATION RATE > 60 ML/MIN (60-); GLUCOSE 123 mg/dL (74-118); POTASSIUM 3.4 mmol/L (3.5-5.1); SODIUM 131 mmol/L (136-145)
[2018-10-19] MEDS ORDERED: MORPHINE SULFATE INJ 4 MG/ML INJ 1ML IV ONE (21:00)
[2018-10-19] MEDS ORDERED: CEFTRIAXONE SOD 1 GM/NS 50 ML 50 ML IV ONE (22:00)
[2018-10-19] MEDS ORDERED: SODIUM CHLORIDE 0.9% 1000ML 1,000 ML IV ONE (22:00)
[2018-10-19] MEDS ORDERED: SODIUM CHLORIDE 0.9% 50ML 50 ML ONE (22:15)
[2018-10-19] MEDS ORDERED: IOPAMIDOL 370 MG/ML 200 ML INFUS..BTL INJ ONE (22:16)
--- NOTE | 2018-10-19 22:21 | Diagnostic Imaging Report ---
EXAM: CT Abdomen and Pelvis WITH contrast INDICATION: ^abd pain s/p colonoscopy COMPARISON: None. TECHNIQUE: Abdomen and pelvis were scanned utilizing a multidetector helical scanner from the lung base to the pubic symphysis after administration of IV contrast. Coronal and sagittal reformations were obtained. Routine protocol was performed. Scan was performed when during portal venous phase. IV CONTRAST: 100 mL of Isovue 370 ORAL CONTRAST: Gastrografin COMPLICATIONS: None RADIATION DOSE: Total DLP: 344.57 mGy*cm Estimated effective dose: (DLP x 0.015 x size factor) mSv CTDIvol has been reviewed. It is below the limits set by the Radiation Protocol Committee (RPC). Dose modulation, iterative reconstruction, and/or weight based adjustment of the mA/kV was utilized to reduce the radiation dose to as low as reasonably achievable. FINDINGS: LINES and TUBES: None. LOWER THORAX: There is bibasilar atelectasis. HEPATOBILIARY: The liver is diffuse hypodense compared to the spleen, consistent with diffuse hepatic diffuse hepatic steatosis. No focal hepatic lesions. No biliary ductal dilation. GALLBLADDER: No radio-opaque stones or sludge. No wall thickening. SPLEEN: Mild splenomegaly measuring 13.5 cm in AP dimension. PANCREAS: No focal masses or ductal dilatation. ADRENALS: No adrenal nodules KIDNEYS/URETERS: Kidneys enhance symmetrically. No hydronephrosis. No cystic or solid mass lesions. No stones. GI TRACT: No abnormal distention, wall thickening, or evidence of bowel obstruction. The cecum is located in the right upper quadrant abdomen, suggesting possible cecal bascule. There is mild inflammatory changes at the cecum near the terminal ileum. The appendix is normal in caliber. However, the inflammatory changes involving the base of the appendix and the cecum. Trace free fluid in the right upper quadrant abdomen near the edge of the liver. PELVIC ORGANS/BLADDER: Unremarkable. LYMPH NODES: No lymphadenopathy. Several prominent jennifer hepatis lymph nodes. VESSELS: There is moderate atherosclerotic disease in the aorta and major arterial branches. Circumaortic left renal vein. PERITONEUM / RETROPERITONEUM: No free air or fluid. BONES: Unremarkable. SOFT TISSUES: 2.1 cm omental containing hernia within measuring 0.9 cm. IMPRESSION: 1. 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 2. Mild inflammatory changes around the cecum and at the base of the appendix. This is less likely appendicitis. This may be related to recent colonoscopy. No free air to suggest perforation. Signed by: Dr. Damon Hernandez M.D. on 10/19/2018 10:17 PM
[2018-10-19] MEDS ORDERED: AMLODIPINE BESY10 MG PO (23:00)
[2018-10-19] MEDS ORDERED: NASONEX17 GM (23:00)
[2018-10-19] MEDS ORDERED: TIZANIDINE HCL4 MG PO (23:00)
[2018-10-19] MEDS ORDERED: PROAIR HFA INH8.5 GM (23:00)
[2018-10-19] MEDS ORDERED: HYDROCHLOROTH12.5 M1 (23:00)
--- NOTE | 2018-10-19 23:03 | NUR ---
REPORT GIVEN TO MEME BEE RN FOR CONTINUITY OF CARE
[2018-10-20] VITALS (10 sets, daily range): BP systolic 142–167; BP diastolic 78–93
[2018-10-20] MEDS: MORPHINE SULFATE INJ 4 MG/ML INJ 1ML IV PRN ×5 (01:01→23:40)
[2018-10-20] MEDS: SODIUM CHLORIDE 0.9% 1000ML 1,000 ML IV SCH ×4 (01:32→21:30)
[2018-10-20] MEDS: CIPROFLOXACIN 400 MG/D5W 200ML 200 ML IV SCH ×3 (01:32→22:30)
--- NOTE | 2018-10-20 01:49 | NUR ---
Report received from MARCI nice. Patient admitted in unit @0044 by stretcher. Patient received alert/oriented x3. Patient complained severe pain on his abdomen and back. Medicated as ordered for pain. Head to toe assessment completed. No skin breakdown noted. Bed in lower position,locked. Call echevarria within reach. Patient instructed to call for help as needed,verbalized and understand. Will continue to monitor.
--- NOTE | 2018-10-20 03:35 | NUR ---
Assessed patient noted little SOB, Spo2 maintained 92% with RA. Assisted to connected 2lierts O2 via nasal canula and stop fluids at this time. V/S WNL. Will continue to monitor.
[2018-10-20] MEDS: METRONIDAZOLE 500MG/NS 100ML 100 ML IV SCH ×4 (05:28→23:30)
--- NOTE | 2018-10-20 07:15 | NUR ---
PT AWAKE RESP EVEN AND UNLABORED AT THIS TIME NO DISTRESS NOTED, PT ABLE TO MAKE NEEDS KNOWN, NO C/O PAIN WHEN ASKED, CALL LIGHT IN REACH.
[2018-10-20 07:26] LABS: BASOPHILS % 0.2 % (0.0-1.0); EOSINOPHILS % 0.2 % (0.0-6.0); HEMATOCRIT 36.1 % (38.2-49.6); HEMOGLOBIN 12.4 g/dL (14.0-18.0); LYMPHOCYTES # (AUTO) 0.6 (1.0-3.2); LYMPHOCYTES % 4.9 % (18.0-39.1); MEAN CORPUSCULAR HEMOGLOBIN 31.6 pg (28-32); MEAN CORPUSCULAR HGB CONC 34.3 g/dL (31-35); MEAN CORPUSCULAR VOLUME 91.9 fL (81-99); MONOCYTES # (AUTO) 0.9 (0.2-0.8); NEUTROPHILS # (AUTO) 11.1 (2.1-6.9); NEUTROPHILS % 87.5 % (38.7-80.0); PLATELET COUNT 197 x10e3/uL (140-360); RED BLOOD COUNT 3.93 x10e6/uL (4.3-5.7); RED CELL DISTRIBUTION WIDTH 12.5 % (11.7-14.4)
[2018-10-20 08:08] LABS: ALANINE AMINOTRANSFERASE 49 IU/L (0-55); ALBUMIN 3.7 g/dL (3.5-5.0); ALBUMIN/GLOBULIN RATIO 1.4 (0.8-2.0); ALKALINE PHOSPHATASE 89 IU/L (40-150); ANION GAP 13.5 mmol/L (8-16); BLOOD UREA NITROGEN 6 mg/dL (7-26); BUN/CREATININE RATIO 7 (6-25); CALCIUM 9.1 mg/dL (8.4-10.2); CARBON DIOXIDE 26 mmol/L (22-29); CHLORIDE 97 mmol/L (98-107); CREATININE, SERUM 0.88 mg/dL (0.72-1.25); EST GLOMERULAR FILTRATION RATE > 60 ML/MIN (60-); GLUCOSE 112 mg/dL (74-118); POTASSIUM 3.5 mmol/L (3.5-5.1); SODIUM 133 mmol/L (136-145)
[2018-10-20] MEDS ORDERED: PANTOPRAZOLE INJ 40 MG in SODIUM CHLORIDE 0.9% 50ML 50 ML IV SCH (09:00)
[2018-10-20] MEDS ORDERED: HYOSCYAMINE SULFATE 0.5 MG/ML INJ IV ONE ×2 (09:00)
[2018-10-20] MEDS ORDERED: PANTOPRAZOLE 40 MG 10ML VIAL IV ONE (09:00)
[2018-10-20] MEDS: ONDANSETRON HCL INJ 2MG/ML 2ML 2 MG/ML VIAL IV PRN ×4 (11:20→23:40)
--- NOTE | 2018-10-20 13:18 | Consultation ---
DATE OF CONSULTATION: 10/20/2018 HISTORY OF PRESENT ILLNESS: Mr. Parsons is a patient known to me from office visit, 62 years old, who presented with complaint of abdominal pain in the right lower quadrant, been for quite a bit of time, episodic, no triggering factor, describe it as burning, when it occurs it lasts a couple of days before it resolves, does not radiate, moderate in intensity, no relieving factor in particular, associated with heartburn. The patient denied constipation, change in bowel habits. Denied any nausea, vomiting, or bleeding. At his presentation, upper and lower endoscopy were scheduled and yesterday, the patient had his upper endoscopy, which revealed a large gastric body polyp, it was resected after injecting the base with epinephrine and a clip was placed at the site. On his colonoscopy, he was found to have a small polyp in his cecum and it was removed by hot biopsy. Subsequently, after the patient went home, he called us because he started having excruciating abdominal pain and was advised him to come back to the emergency room. In the emergency room, he was evaluated and CT scan of the abdomen with contrast was done, but no acute finding was found. Due to his severe abdominal pain and white cell count of 15,000, he was admitted for observation and he was placed on n.p.o. status. This morning, when I talked to him, he still has abdominal discomfort mainly in the epigastrium and around his umbilicus, I assume related to the polyp removed from his stomach. He is afebrile, his white cell count has dropped to 12,000 and he is still n.p.o. REVIEW OF SYSTEMS: Today is unremarkable. PAST MEDICAL HISTORY: Hypertension and arthritis and chronic obstructive pulmonary airway disease. PAST SURGICAL HISTORY: No previous heart surgery. FAMILY HISTORY: Strong history of colon cancer. SOCIAL HISTORY: He is retired, has no children, is single. He drinks alcohol socially. He does not smoke. ALLERGIES: NIL. CURRENT MEDICATIONS: While he is in the hospital, he is on Flagyl, Cipro, and Zofran. PHYSICAL EXAMINATION: GENERAL: Awake, alert, oriented, hemodynamically stable. VITAL SIGNS: Temperature 97, pulse 85, blood pressure 150/84. NECK: Supple. LUNGS: Clear to auscultation. HEART: Irregularly irregular rhythm. ABDOMEN: Soft, but diffusely tender. Bowel sounds present. No acute sign except for some guarding around the umbilicus and epigastric area. CENTRAL NERVOUS SYSTEM: Motor function grossly intact. LAB TESTS: BUN 9, creatinine 1.12, sodium 131, potassium 3.4. White cell count today is 12 from 15 yesterday, hemoglobin 12, hematocrit 36 presuming to the hydration. His total bilirubin is 2, AST 84, ALT 68, and alkaline phosphatase normal. IMPRESSION: Pain following endoscopy procedure most likely related to the large polyp resected from the stomach and clip placed in addition to epinephrine injection. CT scan showed no acute finding. We will continue his observation with n.p.o. status. I am placing him on antiacid medication. As far as the abnormal liver function, this is noted in the office when he saw us as an outpatient and currently his workup is in progress as an outpatient for the abnormality on his liver enzymes. Foreign Veloz MD RD/CORINA /[id number]
[2018-10-20 14:14] LABS: AMYLASE 39 U/L (25-125); LIPASE 15 U/L (8-78)
--- NOTE | 2018-10-20 15:14 | History and Physical ---
HISTORY OF PRESENT ILLNESS: The patient states he was sent to the emergency room by his practice clinician because of abdominal pain. See also ER notes. He was hospitalized today because of abdominal pain and elevated white count. He denies nausea or vomiting, GI bleed or diarrhea. History is significant for EGD and colonoscopy on October 19, see operative notes when available. A large gastric body polyp was resected. A small polyp in the cecum was removed. ER performed abdominal CT, see report. Impression, cecum is located in the right upper quadrant. Mild inflammatory changes around the cecum and at the base of the appendix. "This is less likely appendicitis." No free air to suggest perforation. REVIEW OF SYSTEMS: CONSTITUTIONAL: The patient denies headache or visual change. Denies chest pain or shortness of breath. GI: As above. See also note per GI. See ER notes also. CARDIORESPIRATORY: Per the patient negative. GENITOURINARY: ED. NEUROMUSCULAR: Chronic back pain. PAST SURGICAL HISTORY: Denies prior surgery. PAST MEDICAL HISTORY: Included hypertension, degenerative joint disease, COPD. He has been seeing a sebd teacher because of prior elevation of hepatic enzymes. He has been a regular user of ethanol. ALLERGIES: DENIES ALLERGIES. FAMILY HISTORY: Positive for colon cancer. SOCIAL HISTORY: Denies tobacco use. PHYSICAL EXAMINATION: VITAL SIGNS: Temperature is 99, pulse 82 and regular, respiratory rate 19, BP 140/80. HEENT: Pupils are round and reactive. EOMs full. No icterus or pallor. Throat clear. NECK: Supple. Carotids palpable. No palpable goiter. PULMONARY: Auscultation is clear. CARDIAC: Sounds S1, S2 soft. ABDOMEN: Tender. Bowel sounds reduced. EXTREMITIES: Peripheral pulses 1+. No edema, clubbing, or cyanosis. Leg raise negative. DTRs reduced. Strength in legs chronically reduced. The patient has used a cane for extended period of time because of discomfort in his back. He has required chronic hydrocodone to control his back pain. MEDICATIONS: EMR reviewed. LABORATORY DATA: White count 15.24, hemoglobin 14.2, platelet count normal. Amylase and lipase are normal. Pyuria. Nitrite negative and UA. Leukocyte esterase negative on UA. IMPRESSION: Post endoscopy abdominal discomfort, moderately severe on arrival. Now controlled with intravenous analgesics. Inflammation about the cecum on CT, see report. Chronic medical illnesses as mentioned above, includin. Chronic pain and chronic requirements for hydrocodone prior to admission. 2. Chronic obstructive pulmonary disease. 3. Primary hypertension. 4. History of elevated hepatic enzymes. The patient has been seeing a sebd teacher intermittently. PLAN: See also initial orders per ER and followup orders per the patient's practice clinician from this morning. To follow up hematocrits and KUB. Continue analgesics as needed. See also initial and followup orders. The patient is on proton pump inhibitors per GI. Further treatment pending course. MD CANDELARIA Paige/DIPTIL /[id number]
[2018-10-20] MEDS ORDERED: BISACODYL 10 MG SUPP PR ONE (15:45)
--- NOTE | 2018-10-20 15:49 | Consultation ---
DATE OF CONSULTATION: 10/20/2018 REASON FOR CONSULTATION: Abdominal pain following upper and lower GI endoscopy. HISTORY OF PRESENT ILLNESS: I was asked by Dr. Cronin to evaluate this patient, who yesterday underwent both upper and lower GI endoscopies at [place] at [facility] by Dr. Veloz. Following the two endoscopies during which he had biopsies of the stomach and also the cecum, the patient developed generalized diffuse abdominal pain and then he was instructed by his endoscopist to come to the [facility]. 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 His white count was 15,000. The patient was given antibiotics, made n.p.o. and currently he is feeling much much better. The reason for the colonoscopy was the fact that the patient has history of polyps and colon cancer. He has been having right lower quadrant pain for over a year. Currently, his white count is down to 12 and he is afebrile with stable vital signs. PAST MEDICAL HISTORY: The patient is disabled due to back injury and takes regurlarly pain medicines for it. He has not had any abdominal surgeries. He has history of high blood pressure . PHYSICAL EXAMINATION: GENERAL: Reveals a 62-year-old male in no acute distress. VITAL SIGNS: He is afebrile with stable vital signs. HEAD, EYES, EARS, NOSE, AND THROAT: Reveals no acute process. LUNGS: Clear. HEART: Reveals a sinus rhythm. ABDOMEN: Mildly distended but soft. There are no peritoneal signs. The patient has an umbilical hernia with thinned out skin. EXTREMITIES: Reveal no clubbing, cyanosis, or edema. The patient walks with a cane due to chronic back pain for which he takes hydrocodone on a regular basis. ASSESSMENT: 1. Abdominal pain following upper and lower GI endoscopies. This developed suddenly after the colonoscopy and the EGD. At this point, on CT scan, there is no evidence of perforation. Clinically, the patient is doing much better. The assessment is likely pain from the gaseous distention of the intestine due to simultaneous endoscopies. I do not think that at this point there is any acute surgical process. 2. The patient has a chronic umbilical hernia with thinned out skin which is kind of dusky when he stands up, but it reduces. The recommendation at this point is there is no need for surgical intervention. I have given orders for the patient to be given clear liquids and dulcolax suppositories. He was advised elctive repair of tje umbilical Thank you very much for the courtesy of this consultation. MD ADDIE Gilbert/CORINA /[id number]
--- NOTE | 2018-10-20 19:12 | NUR ---
REPORT GIVEN TO ON COMING NURSE. PT STABLE.
--- NOTE | 2018-10-20 20:19 | NUR ---
REPORT GIVEN TO RN FOR RM [id number]
--- NOTE | 2018-10-20 21:05 | NUR ---
RECEIVED PATIENT IN STABLE CONDITION, NO DISTRESS NOTED. PATIENT BED IN LOWEST POSITION AND LOCKED, CALL LIGHT WITHIN EASY REACH WILL CONTINUE TO MONITOR.
[2018-10-21] VITALS: BP 116/95
[2018-10-21] MEDS: ONDANSETRON HCL INJ 2MG/ML 2ML 2 MG/ML VIAL IV PRN ×2 (00:15→05:04)
[2018-10-21] MEDS: MORPHINE SULFATE INJ 4 MG/ML INJ 1ML IV PRN ×2 (00:15→05:04)
[2018-10-21 04:00] VITALS: BP 119/75
[2018-10-21] MEDS: METRONIDAZOLE 500MG/NS 100ML 100 ML IV SCH (05:55)
[2018-10-21 06:05] LABS: BASOPHILS % 0.2 % (0.0-1.0); EOSINOPHILS # (AUTO) 0.2 (0.0-0.4); EOSINOPHILS % 1.6 % (0.0-6.0); HEMATOCRIT 34.7 % (38.2-49.6); HEMOGLOBIN 11.6 g/dL (14.0-18.0); LYMPHOCYTES % 10.8 % (18.0-39.1); MEAN CORPUSCULAR HEMOGLOBIN 31.5 pg (28-32); MEAN CORPUSCULAR HGB CONC 33.4 g/dL (31-35); MEAN CORPUSCULAR VOLUME 94.3 fL (81-99); MONOCYTES # (AUTO) 0.8 (0.2-0.8); MONOCYTES % 8.6 % (4.4-11.3); NEUTROPHILS # (AUTO) 7.2 (2.1-6.9); NEUTROPHILS % 78.6 % (38.7-80.0); PLATELET COUNT 198 x10e3/uL (140-360); RED BLOOD COUNT 3.68 x10e6/uL (4.3-5.7); RED CELL DISTRIBUTION WIDTH 12.4 % (11.7-14.4)
[2018-10-21 06:16] LABS: ALANINE AMINOTRANSFERASE 36 IU/L (0-55); ALBUMIN 3.3 g/dL (3.5-5.0); ALBUMIN/GLOBULIN RATIO 1.2 (0.8-2.0); ALKALINE PHOSPHATASE 77 IU/L (40-150); ANION GAP 12.4 mmol/L (8-16); BLOOD UREA NITROGEN 6 mg/dL (7-26); BUN/CREATININE RATIO 7 (6-25); CALCIUM 8.9 mg/dL (8.4-10.2); CARBON DIOXIDE 26 mmol/L (22-29); CHLORIDE 100 mmol/L (98-107); CREATININE, SERUM 0.84 mg/dL (0.72-1.25); EST GLOMERULAR FILTRATION RATE > 60 ML/MIN (60-); GLUCOSE 105 mg/dL (74-118); POTASSIUM 3.4 mmol/L (3.5-5.1); SODIUM 135 mmol/L (136-145)
[2018-10-21] MEDS: SODIUM CHLORIDE 0.9% 1000ML 1,000 ML IV SCH (07:23)
[2018-10-21] MEDS ORDERED: PANTOPRAZOL 40MG/SOD CHL 0.9% 50 ML IV SCH (07:30)
[2018-10-21 08:24] VITALS: BP 147/70
--- NOTE | 2018-10-21 08:45 | NUR ---
Placed call to Dr. Cronin, provided lab results, made him aware patient is wanting to go home, received orders for abdominal 2 view x-ray and to discharge patient. Per Dr. Cronin if patient does not want to do abdominal x-ray go ahead and discharged him.
[2018-10-21] MEDS: CIPROFLOXACIN 400 MG/D5W 200ML 200 ML IV SCH (09:00)
--- NOTE | 2018-10-21 09:26 | Diagnostic Imaging Report ---
Exam: Abdominal film Clinical History: Abdominal pain Comparison: CT abdomen and pelvis 10/19/2018 DISCUSSION: Markedly dilated cecum, abnormally located in the mid epigastric region. Unchanged compared to grocery deliverer tomogram from CT abdomen and pelvis. Gas within the distal colon is also noted. No pneumoperitoneum. No abnormal mass effect or calcification. Enteric contrast material opacifies several loops of small bowel in the low abdomen and pelvis. Regional skeletal structures are intact. 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 No pneumoperitoneum. Signed by: Dr. Quoc Joseph M.D. on 10/21/2018 9:22 AM
--- NOTE | 2018-10-21 09:51 | NUR ---
Received orders from Dr. Cronin to cancel discharge due to abdominal, x-ray results. Made Dr. Cronin aware that I had already finalized discharge but had not given it to patient, received orders to reverse, it. Informed, Dr. Cronin patient was already dressed and was ready to leave, Per. Dr. Cronin inform patient it will be against medical advise.
--- NOTE | 2018-10-21 09:55 | NUR ---
Patient left against medical advice notified fish housekeeper, and charge nurse. Intervention by both charge nurse and fish housekeeper. Patient adamantly left against medical advice.
--- NOTE | 2018-10-21 09:55 | NUR ---
Patient left AMA
--- NOTE | 2018-10-21 20:20 | Discharge Summary ---
The patient was hospitalized through the emergency room. See also electronic medical record, consultations, imaging and laboratory reports per EMR. The patient required hospitalization for pain control for severe abdominal pain. He had undergone outpatient EGD with gastric polyp removal. Outpatient colonoscopy with cecal polyp removal. See also consultations as mentioned. The patient was seen while here by his park naturalist, who had performed the endoscopies required on the day prior to hospitalization. The patient was also seen by the General creative consultant while here. History included chronic back pain and primary hypertension as well as COPD and history of elevated liver function studies previously. The patient is followed intermittently by a actuary clerk also. Database was ordered to be obtained and monitored including ER CT. The patient required intravenous morphine 4 mg q.4 hours p.r.n. to control his pain. Broad-spectrum intravenous antibiotics were ordered in emergency room. IV fluids were continued transiently when the patient was n.p.o. Clear liquids were authorized on the morning of October 21 and tolerated according to the patient's nurse. Vital signs remained normal. On admission, white count on October 19 was 15,240. I was called regarding the patient being admitted on the morning of October 20 early. October 20, white count was 12,540. On October 21, white count was 9220. Hemoglobin fell on October 19 is 14.2, October 21 is 11.6. No bleeding seen. The platelet counts remain normal. The patient had a mild left shift on admission. White count initially improved here. ProTime 13.2 seconds with INR 0.95. PTT 27. Urinalysis, 6 to 10 white cells per high-power field. No dysuria or frequency. Chemistries, monitored serially with elevated liver function studies, which serially improved while here. Total bilirubin 2.1 on October 19, bilirubin 1.8 on October 21. AST 84, October 19, AST 35 on October 21. ALT 68, on October 19, 36 on October 21. Amylase and lipase were normal. Potassium 3.4 on admission, 3.5 on October 20, 3.4 on October 21. Glucose 123 on October 19 and 105 on October 21. His alkaline phosphatase is normal. Albumin and globulin are normal. ER CT abdomen and pelvis, see report. Liver diffuse hypodensity compared to the spleen consistent with diffuse hepatic steatosis. The patient was counseled to avoid toxins previously and now. Mild splenomegaly. Cecum located right upper quadrant. Mild inflammatory changes at cecum near the terminal ileum. Appendix is normal in caliber. Inflammatory changes involve the base of the appendix and the cecum. Trace free fluid. Right upper quadrant abdomen at the edge of the liver. Atherosclerosis. 2.1 cm omental containing hernia were then measuring 0.9 cm. To exam, the patient has an umbilical hernia. Abdominal x-ray on October 21 at 9 a.m., markedly dilated cecum, abnormally located in the mid epigastric region, unchanged compared to linoleum floor layer film from CT abdomen and pelvis. Gas within the distal colon noted. No pneumoperitoneum. The patient advised his nurse in the morning of his final hospital day that he was leaving and he did leave against medical advice. FINAL IMPRESSION: Post endoscopy abdominal pain with inflammation about the cecum. Fluid about the gastric area. Post biopsies. The patient stated his symptoms resolved on his final hospital day. Chronic medical illnesses include: Chronic liver disease as above. Chronic low back pain with degenerative joint disease. He has chronic pain syndrome. Chronic obstructive pulmonary disease. Primary hypertension. MD CANDELARIA Paige/MODL /[id number]
== END 2018-10-21 09:53 | disposition left against medical advice (07) ==
LOC: ER 19:16 → ERHOLD 23:56 → IMCU 10-20 00:44 → MED/SURG3 10-20 20:52
PROVIDERS: ADMIT Internal Medicine; ATTEND Internal Medicine
DX: G89.18 Other acute postprocedural pain (principal); G89.4 Chronic pain syndrome; D12.0 Benign neoplasm of cecum; J44.9 Chronic obstructive pulmonary disease, unspecified; I10 Essential (primary) hypertension; R79.89 Other specified abnormal findings of blood chemistry; Z80.0 Family history of malignant neoplasm of digestive organs; M19.90 Unspecified osteoarthritis, unspecified site; Z72.89 Other problems related to lifestyle; Z86.010 Personal history of colon polyps
CPT/HCPCS: 36415 ×3; 74019; 74177; 80053 ×3; 81001; 82150; 83690; 85025 ×3; 85610; 85730; 99284; C9113; G0378 ×3; J0696; J0744 ×2; J2270 ×3; J2405 ×3; J7030 ×2; Q9967